=== PATIENT | male | born 1990 | race African-American/Black ===

== ENCOUNTER 2024-03-13 18:06 | Observation (INO) | payer OTHER ==
[2024-03-13 19:08] LABS: #Basophils 0.01 10x3/uL (0.0-0.2); #Monocytes 0.24 10x3/uL (0.0-1.1); #Neutrophils 1.24 10x3/uL (1.5-8.4); %Basophils 0.3 % (0.0-2.0); %Lymphocytes 55.3 % (18.0-47.0); %Monocytes 7.2 % (0.0-10.0); %Neutrophils 37.2 % (40.0-75.0); Hematocrit 19.8 % (38.8-50.0); Hemoglobin 7.1 g/dL (13.5-17.5); Mean Corpuscular HGB CONC 35.9 g/dL (32.0-36.0); Mean Corpuscular Hemoglobin 44.4 pg (27.0-33.0); Mean Corpuscular Volume 123.8 fL (81.2-95.1); Mean Platelet Volume 9.3 fL (7.4-10.4); Platelet Count 174 10x3/uL (150-450); White Blood Cell (WBC) Count 3.3 10x3/uL (3.5-10.5)
[2024-03-13 19:19] LABS: ALT (SGPT) 19 U/L (8-55); AST (SGOT) 21 U/L (5-34); Albumin 4.2 g/dL (3.5-5.0); Alkaline Phosphatase 84 U/L (40-110); Anion Gap 12 mmol/L (10-20); BUN (Urea Nitrogen) 9 mg/dL (8.9-20.6); Bilirubin, Total 0.7 mg/dL (0.2-1.2); Calc. Creatinine Clearance 0 mL/min (70-130); Calcium 9.4 mg/dL (7.8-10.44); Carbon Dioxide 25 mmol/L (22-29); Chloride 109 mmol/L (98-107); Estimated GFR 121; Globulin 3.1 g/dL (2.4-3.5); Glucose 111 mg/dL (70-105); Potassium 3.7 mmol/L (3.5-5.1); Protein, Total 7.3 g/dL (6.0-8.3); Sodium 142 mmol/L (136-145)
[2024-03-13 19:28] LABS: Troponin I Less than 0.010 ng/mL (< 0.028)
[2024-03-13] MEDS ORDERED: Ondansetron PF 4 MG/2 ML Vial ONE (19:28)
[2024-03-13] MEDS ORDERED: Morphine 4 MG/ML VIAL ONE (19:28)
[2024-03-13] MEDS ORDERED: Ketorolac Tromethamine 30 MG (1 mL) VIAL ONE (19:28)
[2024-03-13] MEDS ORDERED: HYDROmorphone 0.5 MG/0.5 ML SYRINGE ONE ×2 (20:51→23:41)
[2024-03-14] MEDS ORDERED: HYDROmorphone 0.5 MG/0.5 ML SYRINGE ONE (01:19)
[2024-03-14] MEDS ORDERED: Senokot S 8.6-50 MG TAB PO PRN (01:33)
[2024-03-14] MEDS ORDERED: Ondansetron PF 4 MG/2 ML Vial IVP PRN (01:33)
[2024-03-14] MEDS ORDERED: Ondansetron ODT 4 MG TAB PO PRN (01:33)
[2024-03-14] MEDS ORDERED: Acetaminophen 325 MG TAB PO PRN (01:37)
[2024-03-14 03:06] VITALS: BMI 27.2
[2024-03-14] MEDS: Sodium Chloride 0.9% 1,000 ML IV SCH (03:27)
[2024-03-14] MEDS: HYDROmorphone 0.5 MG/0.5 ML SYRINGE SLOW IVP SCH (03:27)
[2024-03-14 04:11] LABS: Anion Gap 13 mmol/L (10-20); BUN (Urea Nitrogen) 8 mg/dL (8.9-20.6); Calc. Creatinine Clearance 162 mL/min (70-130); Calcium 8.6 mg/dL (7.8-10.44); Carbon Dioxide 22 mmol/L (22-29); Chloride 111 mmol/L (98-107); Estimated GFR 121; Glucose 78 mg/dL (70-105); Magnesium 1.9 mg/dL (1.6-2.6); Potassium 4.1 mmol/L (3.5-5.1); Sodium 142 mmol/L (136-145)
[2024-03-14] MEDS: Loratadine 10 MG TAB PO SCH (08:24)
[2024-03-14] MEDS: Amlodipine 10 MG TAB PO SCH (08:24)
[2024-03-14] MEDS: HYDROcodone/Acetaminophen 5/325 mg Tablet PO SCH (08:25)
[2024-03-14] MEDS: Sertraline 25 MG TAB PO SCH (08:26)
[2024-03-14] MEDS: Docusate 100 MG CAP PO SCH (08:27)
[2024-03-14] MEDS: Famotidine 20 MG TAB PO SCH (08:27)
[2024-03-14] MEDS: Folic Acid 1 MG TAB PO SCH (08:27)
[2024-03-14] MEDS: Aspirin 81 mg Enteric Coated Tablet PO SCH (08:27)
[2024-03-14] MEDS: Hydroxyurea 500 MG CAP PO SCH (08:39)
[2024-03-14] MEDS: Morphine 4 MG/ML VIAL SLOW IVP PRN (11:23)
[2024-03-14] MEDS: HYDROcodone/Acetaminophen 5/325 mg Tablet PO PRN (13:29)
[2024-03-14] MEDS: Rivaroxaban 10 MG TAB PO SCH (20:22)
[2024-03-14] MEDS: Lisinopril 20 MG TAB PO SCH (20:23)
[2024-03-14 21:44] LABS: Hematocrit 25.2 % (38.8-50.0); Hemoglobin 9.3 g/dL (13.5-17.5); Mean Corpuscular HGB CONC 36.9 g/dL (32.0-36.0); Mean Corpuscular Hemoglobin 39.7 pg (27.0-33.0); Mean Corpuscular Volume 107.7 fL (81.2-95.1); Mean Platelet Volume 9.5 fL (7.4-10.4); Platelet Count 154 10x3/uL (150-450); Red Blood Cell (RBC) Count 2.34 10x6/uL (4.32-5.72); White Blood Cell (WBC) Count 4.4 10x3/uL (3.5-10.5)
[2024-03-14 23:10] LABS: Eosinophils 1 % (0-10); Lymphocytes 62 % (21-51); Monocytes 5 % (0-10); Nucleated RBC (Manual Ct) 4 % (0); Reactive Lymphocytes 1 % (0-10)
[2024-03-14 23:13] LABS: Neutrophil 30 % (42-75)
[2024-03-14 23:15] LABS: Anisocytosis MODERATE=16-30 cells (100X) (0-5/hpf); Hypochromia SLIGHT = 6-15 cells (100X) (0-5/hpf); Macrocytosis MODERATE=16-30 cells (100X) (0-5/hpf); Microcytosis SLIGHT = 6-15 cells (100X) (0-5/hpf); Ovalocytes SLIGHT = 2-5 cells (100X) (0-1/hpf); Poikilocytosis SLIGHT = 6-15 cells (100X) (0-5/hpf); Sickle Cells SLIGHT = 1-5 cells (100X) (None Seen)
[2024-03-14 23:16] LABS: Target Cells SLIGHT = 2-5 cells (100X) (0-1/hpf)
[2024-03-14 23:17] LABS: Platelet Adequacy Comment Appears Adequate
[2024-03-14 23:19] LABS: Polychromasia SLIGHT = 2-3 cells (100X) (0-2/hpf)
[2024-03-14 23:21] LABS: MDiff Complete? YES
[2024-03-15 05:10] VITALS: TEMP 98
[2024-03-15 07:13] VITALS: BP 143/75
== END 2024-03-15 13:36 ==
LOC: CSHERS 18:06 → EEVIPCON 18:06 → CSHTELE 03-14 01:02
PROVIDERS: ADMIT Family Medicine; ATTEND Family Medicine
DX: D57.00 Hb-SS disease with crisis, unspecified (principal); I10 Essential (primary) hypertension; D63.8 Anemia in other chronic diseases classified elsewhere; Z86.711 Personal history of pulmonary embolism; Z79.82 Long term (current) use of aspirin
CPT/HCPCS: 36415; 36430; 71045; 72131; 80048; 80053; 83735; 84484; 85025; 85046; 86850; 86900; 86901; 94760; 96375; 96376; G0378; J1170; J1885; J2272; J2405; J7030; P9016

== ENCOUNTER 2024-06-16 23:20 | Emergency (ER) | payer OTHER ==
[2024-06-16] MEDS ORDERED: Morphine 4 MG/ML VIAL ONE (23:57)
[2024-06-16] MEDS ORDERED: Ketorolac Tromethamine 30 MG (1 mL) VIAL ONE (23:57)
[2024-06-17 00:13] LABS: Hematocrit 23.5 % (38.8-50.0); Hemoglobin 8.3 g/dL (13.5-17.5); Mean Corpuscular HGB CONC 35.3 g/dL (32.0-36.0); Mean Corpuscular Hemoglobin 42.6 pg (27.0-33.0); Mean Corpuscular Volume 120.5 fL (81.2-95.1); Mean Platelet Volume 9.4 fL (7.4-10.4); Platelet Count 173 10x3/uL (150-450); Red Blood Cell (RBC) Count 1.95 10x6/uL (4.32-5.72); White Blood Cell (WBC) Count 8.9 10x3/uL (3.5-10.5)
[2024-06-17 00:14] LABS: MDiff Complete? YES
[2024-06-17 00:19] LABS: INR-International Normal Ratio 1.1; PTT 22.2 sec (22.0-33.0); Prothrombin Time 11.7 sec (9.5-12.1)
[2024-06-17 00:22] LABS: ALT (SGPT) 39 U/L (8-55); AST (SGOT) 61 U/L (5-34); Albumin 4.3 g/dL (3.5-5.0); Alkaline Phosphatase 78 U/L (40-110); Anion Gap 16 mmol/L (10-20); BUN (Urea Nitrogen) 11 mg/dL (8.9-20.6); Calc. Creatinine Clearance 0 mL/min (70-130); Calcium 9.6 mg/dL (7.8-10.44); Carbon Dioxide 21 mmol/L (22-29); Chloride 110 mmol/L (98-107); Estimated GFR 121; Globulin 3.2 g/dL (2.4-3.5); Glucose 89 mg/dL (70-105); Potassium 3.7 mmol/L (3.5-5.1); Protein, Total 7.5 g/dL (6.0-8.3); Sodium 143 mmol/L (136-145)
[2024-06-17] MEDS ORDERED: HYDROmorphone 0.5 MG/0.5 ML SYRINGE ONE ×2 (00:34→01:36)
[2024-06-17 00:48] LABS: Lymphocytes 58 % (21-51); Monocytes 2 % (0-10); Neutrophil 40 % (42-75); Nucleated RBC (Manual Ct) 19 % (0)
[2024-06-17 01:01] LABS: Anisocytosis MODERATE=16-30 cells (100X) (0-5/hpf); Macrocytosis MODERATE=16-30 cells (100X) (0-5/hpf); Poikilocytosis SLIGHT = 6-15 cells (100X) (0-5/hpf)
[2024-06-17 01:02] LABS: Elliptocytes SLIGHT = 2-5 cells (100X) (0-1/hpf); Ovalocytes SLIGHT = 2-5 cells (100X) (0-1/hpf); Polychromasia SLIGHT = 2-3 cells (100X) (0-2/hpf); Sickle Cells SLIGHT = 1-5 cells (100X) (None Seen); Target Cells SLIGHT = 2-5 cells (100X) (0-1/hpf)
[2024-06-17 01:05] LABS: Platelet Adequacy Comment Appears Adequate
[2024-06-17] MEDS ORDERED: diphenhydrAMINE 50 MG/ML VIAL ONE (02:27)
== END 2024-06-17 02:48 | disposition home or self-care (01) ==
LOC: CSHERS 23:20 → EEVIPCON 23:20 → CSHERS 06-17 02:48
DX: D57.00 Hb-SS disease with crisis, unspecified (principal); I10 Essential (primary) hypertension; Z79.899 Other long term (current) drug therapy; Z79.82 Long term (current) use of aspirin; Z86.711 Personal history of pulmonary embolism; Z79.01 Long term (current) use of anticoagulants
CPT/HCPCS: 80053; 83615; 85025; 85046; 85610; 85730; 86850; 86900; 86901; 96374; 96375; 96376; J1171; J1200; J1885; J2272